=== PATIENT | female | born 1990 | race Caucasian/White ===

== ENCOUNTER 2017-10-23 14:03 | Emergency (ER) | payer BC ==
[~2017-10-23] VITALS: Ht 162.6 cm; Wt 62.0 kg
[2017-10-23 14:28] VITALS: BP 123/72; PULSE 112; RESP 16; TEMP 98.3; O2SAT 100
[2017-10-23] MEDS ORDERED: DEPO104I SQ (14:43)
[2017-10-23] MEDS ORDERED: SODIUM CHLOR 0.9% 1000 ML INJ 1,000 ML IV SCH (15:01)
[2017-10-23] MEDS ORDERED: KETOROLAC TROMETHAMINE 30 MG/ML (IVP) VIAL IVP ONE (15:15)
[2017-10-23] MEDS ORDERED: SODIUM CHLORIDE 0.9% FLUSH 10 ML FLUSH IV FLUSH PRN (15:15)
[2017-10-23] MEDS ORDERED: DEXAMETHASONE SOD PHOS 20 MG/5 ML VIAL IV PUSH ONE (15:15)
[2017-10-23] MEDS ORDERED: ALUMINUM/MAGNESIUM/SIMETH 30 ML CUP PO ONE (15:15)
[2017-10-23] MEDS ORDERED: LIDOCAINE VISCOUS 2% SOLN 15 ML UDC PO ONE (15:15)
[2017-10-23] MEDS ORDERED: ACYCLOVIR INJ 500 MG in SODIUM CHLORIDE 0.9% INJ 100 ML IV ONE (15:15)
--- NOTE | 2017-10-23 15:28 | PD ---
HPI Chief Complaint: Oral / Dental Pain or Problem Time Seen by Provider: 14:58 Travel History International Travel<30 days: No Contact w/Intl Traveler<30days: No Traveled to known affect area: No History of Present Illness HPI 27-year-old female presents emergency department with severe sore throat, neck swelling, difficulty swallowing, and lesions on the tongue and gum line. Patient states this started 5 days ago has progressively worsened. She denies significant fever or chills. She has no headache, but feels somewhat lightheaded as he is not able to drink. Patient also wonders if she may have a urinary tract infection with a history of urinary frequency and dysuria for the past several days as well. Patient states she has no trouble breathing with this pain with swallowing. She has no cough, nausea, vomiting, or abdominal pain. No CVA tenderness. Pain in the throat is 10 out of 10. She has no known drug allergies. PFSH Past Medical History ?: Not Social History Alcohol Use: Yes Tobacco Use: No Substance Use: No Allergies-Medications (Allergen,Severity, Reaction): Coded Allergies: No Known Allergies (Unverified , 10/23/17) Reported Meds & Prescriptions Reported Meds & Active Scripts Active Reported Depo-Provera Sub-Q Inj (Medroxyprogesterone Inj) 104 Mg/0.65 Ml Syringe 104 Mg SQ Q90D Review of Systems Except as stated in HPI: all other systems reviewed are Neg General / Constitutional: Positive: Chills, No: Fever Eyes: No: Visual changes HENT: Positive: Sore Throat, No: Headaches, Vertigo, Lightheadedness, Rhinitis , Rhinorrhea, Congestion, Nosebleed, Neck Stiffness, Neck Pain, Dental Difficulties, Earache Cardiovascular: No: Chest Pain or Discomfort Respiratory: No: Shortness of Breath Gastrointestinal: No: Nausea, Vomiting, Diarrhea, Abdominal Pain Genitourinary: Positive: Urgency, Frequency, Dysuria Musculoskeletal: No: Pain Skin: No Rash Neurologic: No: Weakness Psychiatric: No: Depression Endocrine: No: Polydipsia Hematologic/Lymphatic: No: Easy Bruising Physical Exam Narrative GENERAL: Patient appears in mild to moderate distress per SKIN: Warm and dry. Normal color. Normal turgor. HEAD: Atraumatic. Normocephalic. EYES: Pupils equal and round. No scleral icterus. No injection or drainage. ENT: No nasal bleeding or discharge. Mucous membranes pink and moist. Patient has bilateral tonsillar swelling with multiple viral lesions to the tongue, soft palate, posterior pharynx, and gumline on the left greater than the right. This appears consistent with HSV 1. Uvula is midline. Airway appears patent. Voice is normal. NECK: Trachea midline. Supple. Patient has moderate bilateral anterior cervical lymphadenopathy. This is tender with palpation. No abscess suspected. CARDIOVASCULAR: Regular rate and rhythm. RESPIRATORY: No accessory muscle use. Clear to auscultation. Breath sounds equal bilaterally. GASTROINTESTINAL: Abdomen soft, non-tender, nondistended. Hepatic and splenic margins not palpable. No CVA tenderness. MUSCULOSKELETAL: Extremities without clubbing, cyanosis, or edema. No obvious deformities. NEUROLOGICAL: Awake and alert. No obvious cranial nerve deficits. Motor grossly within normal limits. Five out of 5 muscle strength in the arms and legs. Normal speech. PSYCHIATRIC: Appropriate mood and affect; insight and judgment normal. Data Data Last Documented VS Vital Signs Date Time Temp Pulse Resp B/P (MAP) Pulse Ox O2 Delivery O2 Flow Rate FiO2 10/23/17 16:00 98 22 134/62 (86) 98 Room Air 10/23/17 14:28 98.3 Orders Orders Complete Blood Count With Diff (10/23/17 15:01) Comprehensive Metabolic Panel (10/23/17 15:01) Urinalysis - C+S If Indicated (10/23/17 15:01) Iv Access Insert/Monitor (10/23/17 15:01) Ecg Monitoring (10/23/17 15:01) Oximetry (10/23/17 15:01) Sodium Chlor 0.9% 1000 Ml Inj (Ns 1000 M (10/23/17 15:01) Sodium Chloride 0.9% Flush (Ns Flush) (10/23/17 15:15) Ketorolac Inj (Toradol Inj) (10/23/17 15:15) Al-Mag Hy-Si 40-40-4 Mg/Ml Liq (Mag-Al P (10/23/17 15:15) Lidocaine 2% Viscous (Xylocaine 2% Visco (10/23/17 15:15) Dexamethasone Inj (Decadron Inj) (10/23/17 15:15) Acyclovir Inj (Zovirax Inj) (10/23/17 15:15) Urine Culture (10/23/17 15:48) Ceftriaxone Inj (Rocephin Inj) (10/23/17 16:45) Labs Laboratory Tests Test 10/23/17 15:48 White Blood Count 6.5 TH/MM3 Red Blood Count 4.93 MIL/MM3 Hemoglobin 13.8 GM/DL Hematocrit 41.5 % Mean Corpuscular Volume 84.1 FL Mean Corpuscular Hemoglobin 28.0 PG Mean Corpuscular Hemoglobin Concent 33.3 % Red Cell Distribution Width 13.0 % Platelet Count 162 TH/MM3 Mean Platelet Volume 8.8 FL Neutrophils (%) (Auto) 70.1 % Lymphocytes (%) (Auto) 16.9 % Monocytes (%) (Auto) 12.8 % Eosinophils (%) (Auto) 0.0 % Basophils (%) (Auto) 0.2 % Neutrophils # (Auto) 4.6 TH/MM3 Lymphocytes # (Auto) 1.1 TH/MM3 Monocytes # (Auto) 0.8 TH/MM3 Eosinophils # (Auto) 0.0 TH/MM3 Basophils # (Auto) 0.0 TH/MM3 CBC Comment DIFF FINAL Differential Comment Urine Color YELLOW Urine Turbidity HAZY Urine pH 6.5 Urine Specific [place] 1.033 Urine Protein 100 mg/dL Urine Glucose (UA) NEG mg/dL Urine Ketones 150 mg/dL Urine Occult Blood TRACE Urine Nitrite NEG Urine Bilirubin NEG Urine Urobilinogen 2.0 MG/DL Urine Leukocyte Esterase LARGE Urine RBC 3 /hpf Urine WBC 15 /hpf Urine Squamous Epithelial Cells 7 /hpf Urine Bacteria OCC /hpf Urine Mucus FEW /lpf Microscopic Urinalysis Comment CULTURE INDICATED Blood Urea Nitrogen 12 MG/DL Creatinine 0.95 MG/DL Random Glucose 77 MG/DL Total Protein 8.4 GM/DL Albumin 3.9 GM/DL Calcium Level 8.7 MG/DL Alkaline Phosphatase 64 U/L Aspartate Amino Transf (AST/SGOT) 30 U/L Alanine Aminotransferase (ALT/SGPT) 36 U/L Total Bilirubin 0.5 MG/DL Sodium Level 135 MEQ/L Potassium Level 3.8 MEQ/L Chloride Level 100 MEQ/L Carbon Dioxide Level 23.8 MEQ/L Anion Gap 11 MEQ/L Estimat Glomerular Filtration Rate 71 ML/MIN [facility] Medical Decision Making Medical Screen Exam Complete: Yes Emergency Medical Condition: Yes Differential Diagnosis Viral pharyngitis. HSV 1. Tonsillitis. Lymphadenitis. Dysuria. Narrative Course Labs ordered including CBC, CMP, and urinalysis. CBC shows no significant leukocytosis. CMP is unremarkable except for sodium 135, GFR 71, total protein is 8.4 Urinalysis shows signs of infection with large leukocyte esterase, 15 WBCs per high-power field, with occasional bacteria. Also significant for protein of 100, ketones 150 IV access was obtained and the patient was given 10 mg Decadron IV, 30 mg Toradol IV, GI cocktail p.o., 1000 mL of normal saline bolus. 1000 mg ceftriaxone IV, 500 mg acyclovir IV. After the above treatment plan the patient appears and feels improved. Patient is felt to be stable for discharge. Patient will be given prescription for acyclovir 800 mg 5 times daily for 7 days. Patient continued on prednisone 20 mg twice daily for 5 days. Patient also continued on Bactrim DS twice daily 7 days for the UTI Patient is given Magic mouthwash 10 mL's swish and swallow every 2 hours as needed 120 mL's with 3 refills Patient to follow-up immediately if worsening symptoms develop, especially more difficulty swallowing or breathing. Diagnosis Primary Impression: HSV-1 (herpes simplex virus 1) infection Additional Impressions: Viral pharyngitis UTI (urinary tract infection) Qualified Codes: N30.00 - Acute cystitis without hematuria Patient Instructions: Dysuria (ED), General Instructions, Oral Herpes Simplex Virus Infections (ED) Additional Instructions: CBC shows no significant leukocytosis. CMP is unremarkable except for sodium 135, GFR 71, total protein is 8.4 Urinalysis shows signs of infection with large leukocyte esterase, 15 WBCs per high-power field, with occasional bacteria. Also significant for protein of 100, ketones 150 IV access was obtained and the patient was given 10 mg Decadron IV, 30 mg Toradol IV, GI cocktail p.o., 1000 mL of normal saline bolus. 1000 mg ceftriaxone IV, 500 mg acyclovir IV. After the above treatment plan the patient appears and feels improved. Patient is felt to be stable for discharge. Patient will be given prescription for acyclovir 800 mg 5 times daily for 7 days. Patient continued on prednisone 20 mg twice daily for 5 days. Patient also continued on Bactrim DS twice daily 7 days for the UTI Patient is given Magic mouthwash 10 mL's swish and swallow every 2 hours as needed 120 mL's with 3 refills Patient to follow-up immediately if worsening symptoms develop, especially more difficulty swallowing or breathing. Med/Other Pt SpecificInfo: Prescription(s) given Disposition: 01 DISCHARGE HOME Condition: Stable Baudilio Wolfe Oct 23, 2017 15:28
[2017-10-23 15:50] VITALS: BP 121/58; RESP 16; O2SAT 100; O2SAT 97
[2017-10-23 16:00] VITALS: BP 134/62; PULSE 98; RESP 22; O2SAT 98
[2017-10-23 16:16] LABS: AUTOMATED NEUTROPHIL # 4.6 TH/MM3 (1.8-7.7); BASOPHIL % 0.2 % (0.0-2.0); HEMATOCRIT 41.5 % (35.0-46.0); HEMOGLOBIN 13.8 GM/DL (11.6-15.3); LYMPH % 16.9 % (9.0-44.0); LYMPHOCYTE # 1.1 TH/MM3 (1.0-4.8); MEAN CELL VOLUME 84.1 FL (80.0-100.0); MEAN CORPUSCULAR HGB CONC 33.3 % (32.0-36.0); MEAN PLATELET VOLUME 8.8 FL (7.0-11.0); MONO % 12.8 % (0.0-8.0); MONOCYTE # 0.8 TH/MM3 (0-0.9); NEUT % 70.1 % (16.0-70.0); PLATELET COUNT 162 TH/MM3 (150-450); RED BLOOD COUNT 4.93 MIL/MM3 (4.00-5.30); WHITE BLOOD COUNT 6.5 TH/MM3 (4.0-11.0)
[2017-10-23 16:18] LABS: BACTERIA, URINE OCC /hpf; BILIRUBIN, URINE NEG (NEG); BLOOD, URINE TRACE (NEG); GLUCOSE,URINE NEG (NEG); KETONE, URINE 150 mg/dL (NEG); MUCUS URINE FEW /lpf (OCC); NITRITE,URINE NEG (NEG); PH, URINE 6.5 (5.0-8.5); SQUAMOUS EPITHELIAL CELL URINE 7 /hpf (0-5); URINE COLOR YELLOW (YELLW/STRAW); URINE LEUKOCYTE ESTERASE LARGE (NEG)
[2017-10-23 16:29] LABS: ALBUMIN 3.9 GM/DL (3.4-5.0); ALT (GPT) 36 U/L (10-53); AST (GOT) 30 U/L (15-37); BICARBONATE 23.8 MEQ/L (21.0-32.0); BLOOD UREA NITROGEN 12 MG/DL (7-18); CALCIUM 8.7 MG/DL (8.5-10.1); CHLORIDE 100 MEQ/L (98-107); CREATININE 0.95 MG/DL (0.50-1.00); GLOMERULAR FILTRATION RATE 71 ML/MIN (>89); GLUCOSE,RANDOM 77 MG/DL (74-106); SODIUM (NA) 135 MEQ/L (136-145)
[2017-10-23 16:32] LABS: ALKALINE PHOSPHATASE 64 U/L (45-117); TOTAL BILIRUBIN ADULT 0.5 MG/DL (0.2-1.0); TOTAL PROTEIN 8.4 GM/DL (6.4-8.2)
[2017-10-23] MEDS ORDERED: cefTRIAXone INJ 1,000 MG in SODIUM CHLORIDE 0.9% INJ 100 ML IV ONE (16:45)
[2017-10-23 17:00] VITALS: BP 125/66; PULSE 112; RESP 22; O2SAT 98
[2017-10-23] MEDS ORDERED: BACT800T5 PO (17:05)
[2017-10-23] MEDS ORDERED: PRED20 PO (17:05)
[2017-10-23] MEDS ORDERED: MAGICADU2 SWISH-SWAL (17:05)
[2017-10-23] MEDS ORDERED: ACYC200UDC PO (17:05)
[2017-10-23] MEDS ORDERED: MORPHINE SULFATE 4 MG/ML INJ IV PUSH ONE (17:30)
[2017-10-23 18:00] VITALS: BP 117/68; PULSE 100; RESP 16; O2SAT 96
== END 2017-10-23 18:55 | disposition home or self-care (01) ==
LOC: NEPD 14:03
DX: B00.9 Herpesviral infection, unspecified (principal); J02.8 Acute pharyngitis due to other specified organisms; B97.89 Other viral agents as the cause of diseases classified elsewhere; N30.00 Acute cystitis without hematuria
CPT/HCPCS: 80053; 81001; 85025; 87086; 96365; 96367; 96375; 99284; J0133; J0696; J1100; J1885; J2270; J7030